=== PATIENT | female | born 1980 | race Caucasian/White ===

== ENCOUNTER 2016-10-25 17:13 | Emergency (ER) | payer BC ==
[~2016-10-25] VITALS: Ht 160 cm; Wt 42.9 kg
[2016-10-25] MEDS ORDERED: ONDANSETRON ODT 4 MG PO ONE (17:30)
[2016-10-25] MEDS ORDERED: SODIUM CHLORIDE 0.9% 1,000ML IVBOLUS ONE (17:30)
[2016-10-25] MEDS ORDERED: ONDANSETRON ODT 4 MG ONE (17:51)
[2016-10-25 18:15] LABS: ASPARTATE AMINO TRANSFERASE 26 U/L (15-37); BLOOD UREA NITROGEN 11 mg/dL (7-18)
[2016-10-25 18:19] LABS: ACETAMINOPHEN 4 mcg/mL (10-30)
[2016-10-25 18:55] VITALS: BP 136/84
[2016-10-25 18:55] LABS: DAU SCREEN DISCLAIMER
== END 2016-10-25 19:32 | disposition home or self-care (01) ==
LOC: ED 19:30
DX: T39.1X1A Poisoning by 4-Aminophenol derivatives, accidental (unintentional), initial encounter (principal); Y92.9 Unspecified place or not applicable
CPT/HCPCS: 36415; 80053; 80307; 80329; 84703; 85025; 85610; 85730; 93005; 96360; 99285; J7030; Q0162; G0480